=== PATIENT | male | born 1960 | race Caucasian/White ===

== ENCOUNTER 2017-02-05 10:25 | Emergency (ER) | payer OTHER ==
[~2017-02-05] VITALS: Ht 182.9 cm; Wt 113.8 kg
[2017-02-05 10:36] VITALS: BP 128/66
== END 2017-02-05 11:06 | disposition home or self-care (01) ==
LOC: ED 10:25
DX: L03.116 Cellulitis of left lower limb (principal); G89.29 Other chronic pain; R60.9 Edema, unspecified; I10 Essential (primary) hypertension; E78.5 Hyperlipidemia, unspecified; M19.90 Unspecified osteoarthritis, unspecified site; Z79.01 Long term (current) use of anticoagulants

== ENCOUNTER 2017-03-30 06:52 | Emergency (ER) | payer OTHER ==
[~2017-03-30] VITALS: Ht 182.9 cm; Wt 112.5 kg
[2017-03-30 08:38] LABS: UA SPECIFIC GRAVITY 1.015 (1.005-1.035); microscopic required? YES; urine erythrocyte 1+ (NEGATIVE)
[2017-03-30 09:30] VITALS: BP 120/64
== END 2017-03-30 09:30 | disposition home or self-care (01) ==
LOC: ED 06:52
PROVIDERS: Emergency Medicine
DX: L03.115 Cellulitis of right lower limb (principal); J40 Bronchitis, not specified as acute or chronic; F17.210 Nicotine dependence, cigarettes, uncomplicated; I10 Essential (primary) hypertension; Z86.79 Personal history of other diseases of the circulatory system; Z79.01 Long term (current) use of anticoagulants; Z79.899 Other long term (current) drug therapy
CPT/HCPCS: 36415; 83880